=== PATIENT | female | born 1990 | race Two or more races ===

== ENCOUNTER 2017-02-17 17:01 | Observation (INO) | payer OTHER ==
[~2017-02-17] VITALS: Ht 167.6 cm; Wt 63.5 kg
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
--- NOTE | 2017-02-17 18:48 | RAD ---
INDICATION: Trauma COMPARISON: None. TECHNIQUE: Axial CT images obtained through the head and cervical spine without intravenous contrast. Coronal and sagittal reformats processed of cervical spine. One or more of the following individualized dose reduction techniques were utilized for this examination: 1. Automated exposure control; 2. Adjustment of the mA and/or kV according to patient size; 3. Use of iterative reconstruction technique. FINDINGS: Head: Small focus of high attenuation in right frontal lobe adjacent to falx No midline shift. Basal cisterns patents. Ventricles and sulci are within normal limits. No acute osseous abnormality. Orbits and paranasal sinuses unremarkable. Cavum septum pellucidum. Cervical: No definite acute fracture. No significant malalignment. No evidence of perivertebral hematoma. IMPRESSION: Small focus of high attenuation in right frontal lobe medially adjacent to the falx. This could be secondary to artifact within the region but given the patient's trauma cannot exclude a tiny focus of hemorrhagic contusion. Follow-up examination could be obtained in several hours to ensure no increase in this finding. No definite acute fracture or dislocation of the cervical spine. Electronically signed by: Zachery Alatorre MD (02/17/2017 6:44 PM)
[2017-02-17] MEDS ORDERED: ONDANSETRON PF 4 MG/2 ML VIAL. IV PRN ×2 (19:15→20:02)
[2017-02-17 19:46] LABS: BASO # 0.1 x10^3/uL (0.0-0.2); BASO % 1 % (0-3); EOS % 2 % (0-3); HEMATOCRIT 40.4 % (36.0-47.0); HEMOGLOBIN 13.6 g/dL (12.0-15.5); LYMPH # 2.6 x10^3/uL (1.0-4.8); LYMPH % 33 % (24-48); MEAN CORPUSCULAR HEMOGLOBIN 30 pg (25-35); MEAN CORPUSCULAR HGB CONC 34 g/dL (31-37); MEAN CORPUSCULAR VOLUME 89 fL (79-100); MONO % 6 % (0-9); NEUT % 58 % (31-73); PLATELET COUNT 382 x10^3/uL (140-400); RED BLOOD COUNT 4.56 x10^6/uL (3.50-5.40); RED CELL DISTRIBUTION WIDTH 13.4 % (11.5-14.5); WHITE BLOOD COUNT 7.9 x10^3/uL (4.0-11.0)
[2017-02-17 19:55] VITALS: BP 123/78
[2017-02-17 19:59] LABS: CALCIUM 9.4 mg/dL (8.5-10.1); CREATININE 0.7 mg/dL (0.6-1.0); GFR 102.8; POTASSIUM 3.6 mmol/L (3.5-5.1)
[2017-02-17 20:05] LABS: TOTAL BILIRUBIN 0.8 mg/dL (0.2-1.0); TOTAL PROTEIN 8.2 g/dL (6.4-8.2)
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
[2017-02-17] MEDS: ACETAMINOPHEN 325 MG TABLET. PO PRN (21:14)
[2017-02-17 23:09] VITALS: BP 110/66
[2017-02-18 03:00] VITALS: BP 95/56
[2017-02-18 07:00] VITALS: BP 99/59
[2017-02-18] MEDS: ACETAMINOPHEN 325 MG TABLET. PO PRN (07:46)
--- NOTE | 2017-02-18 08:52 | RAD ---
Indication follow-up. Possible small focus of bleeding in the right frontal lobe immediately adjacent to the falx. Axial noncontrast images were obtained and are compared to a study approximately 14 hours earlier. Increased density associated with a right frontal lobe gyrus, immediately adjacent to the falx and inner table of the right frontal bone persists. It is unchanged in appearance. Again is uncertain whether this finding is artifactual in nature or secondary to a small amount of hemorrhage associated with the gyrus. No mass or midline shift is seen. There is no evidence of subdural or epidural hematoma. The overall appearance of the head is not changed substantially relative to the previous exam. IMPRESSION: No significant change. Findings associated with the right frontal lobe gyrus, as outlined above, may represent a small amount of parenchymal contusion or artifact. PQRS Compliance Statement: One or more of the following individualized dose reduction techniques were utilized for this examination: 1. Automated exposure control 2. Adjustment of the mA and/or kV according to patient size 3. Use of iterative reconstruction technique
[2017-02-18 11:00] VITALS: BP 103/60
--- NOTE | 2017-02-18 14:18 | PDOC2 ---
NEUROLOGY CONSULT Date of Admission Date of Admission DATE: 02/18/17 TIME: 14:11 Reason for Consult Reason for Consult: Cerebral contusion Referring Physician Referring Physician: Dr. Lynn Source Source: Caregiver, Chart review, Patient History of Present Illness History of Present Illness The patient is a 26-year-old right-handed female injured at work 3 days ago. 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 There was no loss of consciousness. Right afterwards, though, she noted headache, photophobia, dizziness, irritability, nausea, and went to Worker's Compensation physician 2 days later, yesterday. They told her that she should go to the emergency department where CT scan of the head showed small hemorrhage as reviewed below. She has some nausea which has resolved, but still has an achy headache. Overall all of her symptoms are better she would like to go home. She denies any prior history of concussion, stroke, seizure. Past Medical History Cardiovascular: No pertinent hx Pulmonary: No pertinent hx Past Surgical History Past Surgical History: No pertinent history Family History Family History: No pertinent hx Social History Social History Engaged, rare alcohol, no tobacco, works as a psychiatric aid Current Medications Current Medications Current Medications Ondansetron HCl (Zofran) 4 mg PRN Q8HRS PRN IV NAUSEA/VOMITING; Start 02/17/17 at 19:15; Stop 02/17/17 at 20:05; Status DC Ondansetron HCl (Zofran) 4 mg PRN Q6HRS PRN IV NAUSEA/VOMITING; Start 02/17/17 at 20:02; Stop 02/18/17 at 13:33; Status DC Acetaminophen (Tylenol) 650 mg PRN Q6HRS PRN PO pain Last administered on t 07:46; Start 02/17/17 at 20:15; Stop 02/18/17 at 13:33; Status DC Active Scripts Active No Active Prescriptions or Reported Medications Allergies Allergies: Coded Allergies: No Known Drug Allergies (Unverified , 02/17/17) ROS Review of System Patient denies fevers, chills, weight loss, dyspnea, angina, abdominal pain, change in bowels, or dysuria. 14 point review of systems is negative. Physical Exam Physical Examination PHYSICAL EXAMINATION: Vital signs: see above. General appearance is normal and in no acute distress. HEENT: Normocephalic and nontraumatic. Eyes, nose, ears, and throat are unremarkable. NEUROLOGICAL EXAMINATION: Mental Status Examination: Alert. Oriented to time, place, and person. Answers questions and follows commends. Pupils are equal round and reactive to light and accommodation. Funduscopic exam: No papilledema. Extraocular movements are intact. There is no convergence insufficiency. Visual field exam shows no defect on the direct confrontation. No motor or sensory deficits on the facial exam. Uvula in the midline and the soft palate elevated symmetrically. No deviation of the tongue to any direction. Gross hearing is normal. Shoulder shrug normal. Muscle tone is normal. Muscle strength is 5. Deep tendon reflexes are 2+ all around. Plantar reflex is with flexion response bilaterally. [id number] test performance is accurate. Tandem walk test is accurate. Alternative movements are accurate. Romberg test is negative. Gait is normal. Sensory exam shows no deficits. No cerebellar signs are elicited. Vitals VITALS Vital Signs Date Time Temp Pulse Resp B/P (MAP) Pulse Ox O2 Delivery O2 Flow Rate FiO2 02/18/17 11:00 97.9 59 20 103/60 (74) 97 Room Air 97.9 Labs Labs Laboratory Tests Test 02/17/17 19:39 White Blood Count 7.9 x10^3/uL (4.0-11.0) Red Blood Count 4.56 x10^6/uL (3.50-5.40) Hemoglobin 13.6 g/dL (12.0-15.5) Hematocrit 40.4 % (36.0-47.0) Mean Corpuscular Volume 89 fL (79-100) Mean Corpuscular Hemoglobin 30 pg (25-35) Mean Corpuscular Hemoglobin Concent 34 g/dL (31-37) Red Cell Distribution Width 13.4 % (11.5-14.5) Platelet Count 382 x10^3/uL (140-400) Neutrophils (%) (Auto) 58 % (31-73) Lymphocytes (%) (Auto) 33 % (24-48) Monocytes (%) (Auto) 6 % (0-9) Eosinophils (%) (Auto) 2 % (0-3) Basophils (%) (Auto) 1 % (0-3) Neutrophils # (Auto) 4.5 x10^3uL (1.8-7.7) Lymphocytes # (Auto) 2.6 x10^3/uL (1.0-4.8) Monocytes # (Auto) 0.5 x10^3/uL (0.0-1.1) Eosinophils # (Auto) 0.2 x10^3/uL (0.0-0.7) Basophils # (Auto) 0.1 x10^3/uL (0.0-0.2) Sodium Level 138 mmol/L (136-145) Potassium Level 3.6 mmol/L (3.5-5.1) Chloride Level 101 mmol/L (98-107) Carbon Dioxide Level 27 mmol/L (21-32) Anion Gap 10 (6-14) Blood Urea Nitrogen 13 mg/dL (7-20) Creatinine 0.7 mg/dL (0.6-1.0) Estimated GFR (Cockcroft-Gault) 102.8 BUN/Creatinine Ratio 19 (6-20) Glucose Level 89 mg/dL (70-99) Calcium Level 9.4 mg/dL (8.5-10.1) Total Bilirubin 0.8 mg/dL (0.2-1.0) Aspartate Amino Transf (AST/SGOT) 18 U/L (15-37) Alanine Aminotransferase (ALT/SGPT) 22 U/L (14-59) Alkaline Phosphatase 56 U/L (46-116) Total Protein 8.2 g/dL (6.4-8.2) Albumin 4.0 g/dL (3.4-5.0) Albumin/Globulin Ratio 1.0 (1.0-1.7) Laboratory Tests Test 02/17/17 19:39 White Blood Count 7.9 x10^3/uL (4.0-11.0) Red Blood Count 4.56 x10^6/uL (3.50-5.40) Hemoglobin 13.6 g/dL (12.0-15.5) Hematocrit 40.4 % (36.0-47.0) Mean Corpuscular Volume 89 fL (79-100) Mean Corpuscular Hemoglobin 30 pg (25-35) Mean Corpuscular Hemoglobin Concent 34 g/dL (31-37) Red Cell Distribution Width 13.4 % (11.5-14.5) Platelet Count 382 x10^3/uL (140-400) Neutrophils (%) (Auto) 58 % (31-73) Lymphocytes (%) (Auto) 33 % (24-48) Monocytes (%) (Auto) 6 % (0-9) Eosinophils (%) (Auto) 2 % (0-3) Basophils (%) (Auto) 1 % (0-3) Neutrophils # (Auto) 4.5 x10^3uL (1.8-7.7) Lymphocytes # (Auto) 2.6 x10^3/uL (1.0-4.8) Monocytes # (Auto) 0.5 x10^3/uL (0.0-1.1) Eosinophils # (Auto) 0.2 x10^3/uL (0.0-0.7) Basophils # (Auto) 0.1 x10^3/uL (0.0-0.2) Sodium Level 138 mmol/L (136-145) Potassium Level 3.6 mmol/L (3.5-5.1) Chloride Level 101 mmol/L (98-107) Carbon Dioxide Level 27 mmol/L (21-32) Anion Gap 10 (6-14) Blood Urea Nitrogen 13 mg/dL (7-20) Creatinine 0.7 mg/dL (0.6-1.0) Estimated GFR (Cockcroft-Gault) 102.8 BUN/Creatinine Ratio 19 (6-20) Glucose Level 89 mg/dL (70-99) Calcium Level 9.4 mg/dL (8.5-10.1) Total Bilirubin 0.8 mg/dL (0.2-1.0) Aspartate Amino Transf (AST/SGOT) 18 U/L (15-37) Alanine Aminotransferase (ALT/SGPT) 22 U/L (14-59) Alkaline Phosphatase 56 U/L (46-116) Total Protein 8.2 g/dL (6.4-8.2) Albumin 4.0 g/dL (3.4-5.0) Albumin/Globulin Ratio 1.0 (1.0-1.7) Images Images CT head/cervical, 02/17: FINDINGS: Head: Small focus of high attenuation in right frontal lobe adjacent to falx No midline shift. Basal cisterns patents. Ventricles and sulci are within normal limits. No acute osseous abnormality. Orbits and paranasal sinuses unremarkable. Cavum septum pellucidum. Cervical: No definite acute fracture. No significant malalignment. No evidence of perivertebral hematoma. IMPRESSION: Small focus of high attenuation in right frontal lobe medially adjacent to the falx. This could be secondary to artifact within the region but given the patient's trauma cannot exclude a tiny focus of hemorrhagic contusion. Follow-up examination could be obtained in several hours to ensure no increase in this finding. No definite acute fracture or dislocation of the cervical spine. CT head, 02/18: Axial noncontrast images were obtained and are compared to a study approximately 14 hours earlier. Increased density associated with a right frontal lobe gyrus, immediately adjacent to the falx and inner table of the right frontal bone persists. It is unchanged in appearance. Again is uncertain whether this finding is artifactual in nature or secondary to a small amount of hemorrhage associated with the gyrus. No mass or midline shift is seen. There is no evidence of subdural or epidural hematoma. The overall appearance of the head is not changed substantially relative to the previous exam. IMPRESSION: No significant change. Findings associated with the right frontal lobe gyrus, as outlined above, may represent a small amount of parenchymal contusion or artifact. Assessment/Plan Assessment/Plan Impression: Concussion with small right frontal focus of hemorrhage. Clinically the patient is doing fine in her postconcussion symptoms are improving. Recommendations: Okay for discharge I discussed the concept of brain rest which the patient will pursue for the next 4 days. If she is feeling up to it, she can return to work on 02/22, but she will call me if there are any problems. Follow-up with me in 4 weeks Depending on course, she may need MRI of the brain, vestibular and physical therapy, and medication for headache prevention. I discussed the nature the diagnosis with the patient and her fianc. Thank you for letting me help with the patient's care. ROSEMARY GARCÍA MD Feb 18, 2017 14:17
--- NOTE | 2017-02-18 15:37 | PDOC3 ---
Discharge Summary Visit Information Date of Admission: February 17, 2017 Date of Discharge: Feb 18, 2017 Admitting Diagnosis: concussion Final Diagnosis post concussion syndrome small bleed, w. small right frontal focus of hemorrhage. Brief Hospital Course Allergies Allergies Coded Allergies Type Severity Reaction Last Updated Verified No Known Drug Allergies 02/17/17 No Vital Signs Vital Signs Date Time Temp Pulse Resp B/P (MAP) Pulse Ox O2 Delivery O2 Flow Rate FiO2 02/18/17 11:00 97.9 59 20 103/60 (74) 97 Room Air 97.9 Lab Results Laboratory Tests Test 02/17/17 19:39 White Blood Count 7.9 x10^3/uL (4.0-11.0) Red Blood Count 4.56 x10^6/uL (3.50-5.40) Hemoglobin 13.6 g/dL (12.0-15.5) Hematocrit 40.4 % (36.0-47.0) Mean Corpuscular Volume 89 fL (79-100) Mean Corpuscular Hemoglobin 30 pg (25-35) Mean Corpuscular Hemoglobin Concent 34 g/dL (31-37) Red Cell Distribution Width 13.4 % (11.5-14.5) Platelet Count 382 x10^3/uL (140-400) Neutrophils (%) (Auto) 58 % (31-73) Lymphocytes (%) (Auto) 33 % (24-48) Monocytes (%) (Auto) 6 % (0-9) Eosinophils (%) (Auto) 2 % (0-3) Basophils (%) (Auto) 1 % (0-3) Neutrophils # (Auto) 4.5 x10^3uL (1.8-7.7) Lymphocytes # (Auto) 2.6 x10^3/uL (1.0-4.8) Monocytes # (Auto) 0.5 x10^3/uL (0.0-1.1) Eosinophils # (Auto) 0.2 x10^3/uL (0.0-0.7) Basophils # (Auto) 0.1 x10^3/uL (0.0-0.2) Sodium Level 138 mmol/L (136-145) Potassium Level 3.6 mmol/L (3.5-5.1) Chloride Level 101 mmol/L (98-107) Carbon Dioxide Level 27 mmol/L (21-32) Anion Gap 10 (6-14) Blood Urea Nitrogen 13 mg/dL (7-20) Creatinine 0.7 mg/dL (0.6-1.0) Estimated GFR (Cockcroft-Gault) 102.8 BUN/Creatinine Ratio 19 (6-20) Glucose Level 89 mg/dL (70-99) Calcium Level 9.4 mg/dL (8.5-10.1) Total Bilirubin 0.8 mg/dL (0.2-1.0) Aspartate Amino Transf (AST/SGOT) 18 U/L (15-37) Alanine Aminotransferase (ALT/SGPT) 22 U/L (14-59) Alkaline Phosphatase 56 U/L (46-116) Total Protein 8.2 g/dL (6.4-8.2) Albumin 4.0 g/dL (3.4-5.0) Albumin/Globulin Ratio 1.0 (1.0-1.7) Laboratory Tests Test 02/17/17 19:39 White Blood Count 7.9 x10^3/uL (4.0-11.0) Red Blood Count 4.56 x10^6/uL (3.50-5.40) Hemoglobin 13.6 g/dL (12.0-15.5) Hematocrit 40.4 % (36.0-47.0) Mean Corpuscular Volume 89 fL (79-100) Mean Corpuscular Hemoglobin 30 pg (25-35) Mean Corpuscular Hemoglobin Concent 34 g/dL (31-37) Red Cell Distribution Width 13.4 % (11.5-14.5) Platelet Count 382 x10^3/uL (140-400) Neutrophils (%) (Auto) 58 % (31-73) Lymphocytes (%) (Auto) 33 % (24-48) Monocytes (%) (Auto) 6 % (0-9) Eosinophils (%) (Auto) 2 % (0-3) Basophils (%) (Auto) 1 % (0-3) Neutrophils # (Auto) 4.5 x10^3uL (1.8-7.7) Lymphocytes # (Auto) 2.6 x10^3/uL (1.0-4.8) Monocytes # (Auto) 0.5 x10^3/uL (0.0-1.1) Eosinophils # (Auto) 0.2 x10^3/uL (0.0-0.7) Basophils # (Auto) 0.1 x10^3/uL (0.0-0.2) Sodium Level 138 mmol/L (136-145) Potassium Level 3.6 mmol/L (3.5-5.1) Chloride Level 101 mmol/L (98-107) Carbon Dioxide Level 27 mmol/L (21-32) Anion Gap 10 (6-14) Blood Urea Nitrogen 13 mg/dL (7-20) Creatinine 0.7 mg/dL (0.6-1.0) Estimated GFR (Cockcroft-Gault) 102.8 BUN/Creatinine Ratio 19 (6-20) Glucose Level 89 mg/dL (70-99) Calcium Level 9.4 mg/dL (8.5-10.1) Total Bilirubin 0.8 mg/dL (0.2-1.0) Aspartate Amino Transf (AST/SGOT) 18 U/L (15-37) Alanine Aminotransferase (ALT/SGPT) 22 U/L (14-59) Alkaline Phosphatase 56 U/L (46-116) Total Protein 8.2 g/dL (6.4-8.2) Albumin 4.0 g/dL (3.4-5.0) Albumin/Globulin Ratio 1.0 (1.0-1.7) Brief Hospital Course Ms. Hargrove is a 26 old w/ [employer] injured at work 3 days ago, she fell backwards striking her head, no loss of consciousness. days of headache, photophobia, dizziness, irritability, nausea, felt better and would like to be DC home Clinically the patient is doing fine in her postconcussion symptoms are improving. cleared by neurology, Dr. Hines Discharge Information Condition at Discharge: Improved Follow Up: Weeks Disposition/Orders: D/C to Home No Active Prescriptions or Reported Meds CARMENCITA OCHOA MD Feb 18, 2017 15:37
== END 2017-02-18 13:15 | disposition home or self-care (01) ==
LOC: ER 17:01 → 4 NORTH 18:57
PROVIDERS: ADMIT Internal Medicine; ATTEND Internal Medicine
DX: F07.81 Postconcussional syndrome (principal); G44.309 Post-traumatic headache, unspecified, not intractable; S06.330A Contusion and laceration of cerebrum, unspecified, without loss of consciousness, initial encounter; Z91.81 History of falling; W19.XXXA Unspecified fall, initial encounter; Y99.0 Civilian activity done for income or pay
CPT/HCPCS: 36415; 70450; 72125; 80053; 85027; 99285; G0378; G0379